=== PATIENT | male | born 1955 | race Caucasian/White ===

== ENCOUNTER 2017-06-09 07:45 | Emergency (ER) | payer BC ==
[2017-06-09] MEDS ORDERED: ONDANSETRON 2MG/ML, 2ML ONE (08:16)
[2017-06-09] MEDS ORDERED: FAMOTIDINE 20 MG/2 ML ONE (08:16)
[2017-06-09] MEDS ORDERED: MAALOX/HYOSCYAMINE/LIDOCAINE 45 ML BTL ONE (08:16)
[2017-06-09 09:16] LABS: ASPARTATE AMINO TRANSFERASE 4 U/L (15-37); BLOOD UREA NITROGEN 16 mg/dL (7-18)
[2017-06-09] MEDS ORDERED: OMNIPAQUE 350 MG/ML, 100ML BOTTLE ONE (11:38)
[2017-06-09 12:25] LABS: IS PT STATUS REG ER OR PRE ER? YES
== END 2017-06-09 12:49 | disposition home or self-care (01) ==
LOC: ED 09:38
DX: J02.9 Acute pharyngitis, unspecified (principal); R11.2 Nausea with vomiting, unspecified
CPT/HCPCS: 36415; 70491; 71010; 74220; 80053; 82248; 83690; 84484; 87081; 87147; 87880; 93005; 99285; Q9967

== ENCOUNTER 2017-06-18 06:17 | Emergency (ER) | payer BC ==
[~2017-06-18] VITALS: Ht 185.4 cm; Wt 93.3 kg
[2017-06-18 06:24] VITALS: BP 147/87
== END 2017-06-18 07:23 | disposition home or self-care (01) ==
LOC: ED 07:13
DX: B35.3 Tinea pedis (principal)
CPT/HCPCS: 99282

== ENCOUNTER 2017-06-19 12:18 | Emergency (ER) | payer BC ==
[~2017-06-19] VITALS: Ht 185.4 cm; Wt 100.0 kg
[2017-06-19 13:24] LABS: HEMATOCRIT 47.4 % (39.2-51.8); HEMOGLOBIN 16.5 g/dL (13.7-18.0); WHITE BLOOD COUNT 7.8 x10^3/uL (3.4-10)
[2017-06-19 13:36] LABS: BLOOD UREA NITROGEN 12 mg/dL (7-18)
[2017-06-19] MEDS ORDERED: CLINDAMYCIN PMX 600MG/50ML 50 ML ONE (13:45)
[2017-06-19] MEDS ORDERED: CLINDAMYCIN PMX 600MG/50ML 50 ML IV ONE (14:00)
[2017-06-19] MEDS ORDERED: SODIUM CHLORIDE 0.9% 1,000 ML IV ONE (14:00)
[2017-06-19] MEDS ORDERED: SODIUM CHLORIDE FLUSH 10ML SYR IVF ONE (14:00)
[2017-06-19 14:38] VITALS: BP 138/81
== END 2017-06-19 14:40 | disposition home or self-care (01) ==
LOC: ED 13:21
DX: L03.115 Cellulitis of right lower limb (principal)
CPT/HCPCS: 36415; 80048; 82040; 83605; 85025; 85610; 85651; 86140; 87040; 93005; 96374

== ENCOUNTER → 2017-06-25 | Outpatient (CLI) | payer BC | END | disposition home or self-care (01) | LOC: WOUND 09:05 | PROVIDERS: ATTEND Internal Medicine | DX: S91.002A Unspecified open wound, left ankle, initial encounter (principal); I25.2 Old myocardial infarction; F17.210 Nicotine dependence, cigarettes, uncomplicated; Z72.89 Other problems related to lifestyle; X58.XXXA Exposure to other specified factors, initial encounter; Y93.89 Activity, other specified; Y92.89 Other specified places as the place of occurrence of the external cause; Y99.8 Other external cause status | CPT/HCPCS: 97597; 99215 ==

== ENCOUNTER → 2017-07-09 | Outpatient (CLI) | payer BC | END | disposition home or self-care (01) | LOC: WOUND 10:03 | PROVIDERS: ATTEND Physician Assistant | DX: S91.002D Unspecified open wound, left ankle, subsequent encounter (principal); F17.210 Nicotine dependence, cigarettes, uncomplicated; I25.2 Old myocardial infarction; Z72.89 Other problems related to lifestyle; X58.XXXD Exposure to other specified factors, subsequent encounter | CPT/HCPCS: 99214 ==

== ENCOUNTER 2017-07-16 11:33 | Emergency (ER) | payer BC ==
[~2017-07-16] VITALS: Ht 185.4 cm; Wt 91.4 kg
[2017-07-16 11:36] VITALS: BP 147/87
[2017-07-16] MEDS ORDERED: FLUORESCEIN OPHTHALMIC 1 MG STRIP ONE (11:43)
[2017-07-16] MEDS ORDERED: PROPARACAINE OPHTH 0.5%, 15ML ONE (11:43)
== END 2017-07-16 12:38 | disposition home or self-care (01) ==
LOC: ED 11:55
DX: H01.001 Unspecified blepharitis right upper eyelid (principal); Z88.0 Allergy status to penicillin
CPT/HCPCS: 99283